=== PATIENT | female | born 1960 | race Caucasian/White ===

== ENCOUNTER → 2016-03-31 | Outpatient (CLI) | payer MEDICARE, OTHER ==
[~2016-03-31] MED LIST: ASPI81TA60 PO; ATEN50TA2 PO; BIOT10005 PO; CALC1CHW7 PO; CO Q100C10 PO; COLA100C PO; CYCL5TA PO; FISH120012 PO; MAGN500T5 PO; NASA1SPR; VITA250011 SL; VITMTA PO; XYZA5TAB2 PO
[2016-03-31 17:35] LABS: MEAN CORPUSCULAR HEMOGLOBIN 32.3 pg (27.0-33.0); MEAN CORPUSCULAR HGB CONC 33.6 g/dl (32.0-36.5); MEAN CORPUSCULAR VOLUME 96.3 fl (80.0-96.0); RED CELL DISTRIBUTION WIDTH 13.3 % (11.5-14.5); WHITE BLOOD COUNT 6.9 K/mm3 (4.0-10.0)
[2016-03-31 18:55] LABS: VITAMIN B12 LEVEL > 2000 PG/ML (247-911)
[2016-03-31 18:58] LABS: ALBUMIN 4.1 GM/DL (3.2-5.2); ALBUMIN/GLOBULIN RATIO 1.32 (1.00-1.93); ALKALINE PHOSPHATASE 75 U/L (45-117); ALT/SGPT 30 U/L (12-78); ANION GAP 6 MEQ/L (8-16); AST/SGOT 18 U/L (15-37); BILIRUBIN,TOTAL 0.7 MG/DL (0.2-1.0); BLOOD UREA NITROGEN 15 MG/DL (7-18); CALCIUM LEVEL 9.2 MG/DL (8.5-10.1); CARBON DIOXIDE LEVEL 33 MEQ/L (21-32); CHLORIDE LEVEL 104 MEQ/L (98-107); CHOLESTEROL LEVEL 178 MG/DL (<200); CREATININE FOR GFR 0.69 MG/DL (0.55-1.02); GLOMERULAR FILTRATION RATE > 60.0 (>51); GLUCOSE, FASTING 83 MG/DL (70-105); POTASSIUM SERUM 4.4 MEQ/L (3.5-5.1); SODIUM LEVEL 143 MEQ/L (136-145); TOTAL IRON BINDING CAPACITY 319 UG/DL (250-450); TOTAL PROTEIN 7.2 GM/DL (6.4-8.2); TRIGLYCERIDES LEVEL 88 MG/DL (<150)
[2016-03-31 18:59] LABS: FERRITIN 202 NG/ML (8-252); FREE T4 1.06 NG/DL (0.76-1.46)
== END ==
LOC: M LRY 12:20
PROVIDERS: ATTEND Surgery
DX: K91.2 Postsurgical malabsorption, not elsewhere classified (principal); Z79.899 Other long term (current) drug therapy

== ENCOUNTER → 2016-08-26 | Outpatient (REF) | payer MEDICARE, OTHER ==
[~2016-08-26] MED LIST changes: -COLA100C PO; +COLA100C3 PO
== END ==
LOC: M SFHCLERA 14:02
PROVIDERS: ATTEND Physician Assistant
DX: E83.42 Hypomagnesemia (principal)

== ENCOUNTER → 2016-08-26 | Outpatient (CLI) | payer MEDICARE, OTHER ==
[2016-08-26 18:22] LABS: MEAN CORPUSCULAR HEMOGLOBIN 34.2 pg (27.0-33.0); MEAN CORPUSCULAR HGB CONC 34.6 g/dl (32.0-36.5); RED CELL DISTRIBUTION WIDTH 13.2 % (11.5-14.5); WHITE BLOOD COUNT 5.3 K/mm3 (4.0-10.0)
[2016-08-26 19:21] LABS: VITAMIN B12 LEVEL 1783 PG/ML (247-911)
[2016-08-26 19:24] LABS: ALBUMIN/GLOBULIN RATIO 1.25 (1.00-1.93); ALKALINE PHOSPHATASE 79 U/L (45-117); ALT/SGPT 33 U/L (12-78); ANION GAP 6 MEQ/L (8-16); AST/SGOT 28 U/L (15-37); BILIRUBIN,TOTAL 0.5 MG/DL (0.2-1.0); BLOOD UREA NITROGEN 17 MG/DL (7-18); CALCIUM LEVEL 8.9 MG/DL (8.5-10.1); CARBON DIOXIDE LEVEL 32 MEQ/L (21-32); CHLORIDE LEVEL 102 MEQ/L (98-107); CHOLESTEROL LEVEL 225 MG/DL (<200); CREATININE FOR GFR 0.64 MG/DL (0.55-1.02); FERRITIN 163 NG/ML (8-252); FREE T4 0.92 NG/DL (0.76-1.46); GLOMERULAR FILTRATION RATE > 60.0 (>51); GLUCOSE, FASTING 133 MG/DL (70-105); PERCENT SATURATION 27.2 % (13.2-37.4); POTASSIUM SERUM 3.9 MEQ/L (3.5-5.1); SODIUM LEVEL 140 MEQ/L (136-145); TOTAL IRON BINDING CAPACITY 305 UG/DL (250-450); TOTAL PROTEIN 7.2 GM/DL (6.4-8.2); TRIGLYCERIDES LEVEL 164 MG/DL (<150)
== END ==
LOC: M LRY 14:03
PROVIDERS: ATTEND Surgery
DX: E83.42 Hypomagnesemia (principal); K91.2 Postsurgical malabsorption, not elsewhere classified; Z79.899 Other long term (current) drug therapy

== ENCOUNTER → 2017-01-06 | Outpatient (CLI) | payer MEDICARE, OTHER ==
[~2017-01-06] MED LIST changes: -BIOT10005 PO; +BIOT10008 PO; -COLA100C3 PO; +COLA100C5 PO
--- NOTE | 2017-01-06 13:50 | REP ---
Bilateral screening digital mammogram: There are no palpable abnormalities or other breast complaints. The patient states she had a clinical breast exam in January 2017. Comparison is 11/24/2012. The breast parenchyma is moderately dense a heterogeneous pattern that could obscure a lesion. There are benign calcifications. There has been no interval development of masses, areas of structural distortion or clusters of microcalcifications typical of malignancy. Impression: There is no evidence of malignancy. BI-RADS/ACR category 2 mammogram. Benign findings. The patient should have a repeat mammogram in 1 year. This mammogram was interpreted with the aid of an FDA-approved computer-aided detection system. A. Negative x-ray reports should not delay biopsy if a dominant or clinically suspicious mass is present. B. Not all breast cancers are identified by x-ray. C. Adenosis and dense breasts may obscure an underlying neoplasm. The patient letter being requested is M1.
== END ==
LOC: M WHC 11:02
PROVIDERS: ATTEND Nurse Practitioner Women's Health
DX: Z01.419 Encounter for gynecological examination (general) (routine) without abnormal findings (principal); Z12.31 Encounter for screening mammogram for malignant neoplasm of breast; Z12.12 Encounter for screening for malignant neoplasm of rectum
CPT/HCPCS: 82270; G0101; G0123; G0202

== ENCOUNTER → 2017-08-18 | Outpatient (CLI) | payer MEDICARE, OTHER ==
[2017-08-18 11:51] LABS: HEMATOCRIT 38.6 % (36.0-47.0); HEMOGLOBIN 12.9 g/dl (12.0-15.5); MEAN CORPUSCULAR HEMOGLOBIN 32.8 pg (27.0-33.0); MEAN CORPUSCULAR HGB CONC 33.4 g/dl (32.0-36.5); MEAN CORPUSCULAR VOLUME 98.2 fl (80.0-96.0); PLATELET COUNT, AUTOMATED 164 10^3/uL (150-450); RED BLOOD COUNT 3.93 10^6/uL (4.00-5.40); RED CELL DISTRIBUTION WIDTH 12.4 % (11.5-14.5)
[2017-08-18 12:25] LABS: ALBUMIN 3.9 GM/DL (3.2-5.2); ALBUMIN/GLOBULIN RATIO 1.26 (1.00-1.93); ALKALINE PHOSPHATASE 74 U/L (45-117); ALT/SGPT 25 U/L (12-78); ANION GAP 7 MEQ/L (8-16); AST/SGOT 19 U/L (7-37); BILIRUBIN,TOTAL 0.4 MG/DL (0.2-1.0); BLOOD UREA NITROGEN 14 MG/DL (7-18); CALCIUM LEVEL 9.1 MG/DL (8.5-10.1); CARBON DIOXIDE LEVEL 31 MEQ/L (21-32); CHLORIDE LEVEL 105 MEQ/L (98-107); CREATININE FOR GFR 0.61 MG/DL (0.55-1.30); FREE THYROXINE INDEX 3.1 % (1.3-4.8); GLOMERULAR FILTRATION RATE > 60.0 (>51); GLUCOSE, FASTING 89 MG/DL (70-100); IRON (FE) 86 UG/DL (50-170); POTASSIUM SERUM 4.4 MEQ/L (3.5-5.1); SODIUM LEVEL 143 MEQ/L (136-145); T UPTAKE 34 % (30-39); THYROXINE (T4) 9.1 UG/DL (4.5-12.0)
[2017-08-18 12:33] LABS: ESTIMATED AVERAGE GLUCOSE 105 MG/DL (60-110); HEMOGLOBIN A1c 5.3 %
[2017-08-18 12:43] LABS: TOTAL 25(OH) VITAMIN D 26.7 NG/ML (30.0-100.0); VITAMIN B12 LEVEL 708 PG/ML (247-911)
[2017-08-22 00:09] LABS: VITAMIN B1 LEVEL WHOLE BLOOD 78.4 nmol/L (66.5-200.0)
== END ==
LOC: M LRY 08:49
DX: E66.01 Morbid (severe) obesity due to excess calories (principal); I10 Essential (primary) hypertension; E78.4 Other hyperlipidemia; M25.552 Pain in left hip; Z98.84 Bariatric surgery status; Z79.82 Long term (current) use of aspirin; Z88.8 Allergy status to other drugs, medicaments and biological substances; Z79.899 Other long term (current) drug therapy; K21.9 Gastro-esophageal reflux disease without esophagitis; Z91.040 Latex allergy status
CPT/HCPCS: 83540

== ENCOUNTER → 2018-01-09 | Outpatient (CLI) | payer MEDICARE, OTHER | LOC: M WHC 11:12 | DX: Z12.31 Encounter for screening mammogram for malignant neoplasm of breast (principal); Z80.3 Family history of malignant neoplasm of breast | CPT/HCPCS: 77067 ==

== ENCOUNTER → 2018-09-04 | Outpatient (REF) | payer MEDICARE, OTHER ==
[~2018-09-04] MED LIST changes: -CYCL5TA PO; +CYCL5TAB5 PO
[2018-09-04 11:50] LABS: BASO % 0.6 % (0.0-1.0); EOS # 0.1 10^3/uL (0.0-0.50); EOS % 1.4 % (0.0-3.0); HEMATOCRIT 38.5 % (36.0-47.0); HEMOGLOBIN 12.7 g/dl (12.0-15.5); LYMPH # 1.6 10^3/uL (1.5-4.5); LYMPH % 31.1 % (24.0-44.0); MEAN CORPUSCULAR HEMOGLOBIN 33.4 pg (27.0-33.0); MEAN CORPUSCULAR VOLUME 101.3 fl (80.0-96.0); MONO # 0.3 10^3/uL (0.0-0.8); MONO % 6.4 % (0.0-5.0); NEUTROPHILS # 3.1 10^3/uL (1.8-7.7); NEUTROPHILS % 60.1 % (36.0-66.0); PLATELET COUNT, AUTOMATED 189 10^3/uL (150-450); WHITE BLOOD COUNT 5.2 10^3/uL (4.0-10.0)
[2018-09-04 12:18] LABS: BLOOD UREA NITROGEN 16 MG/DL (7-18); CALCIUM LEVEL 8.9 MG/DL (8.8-10.2); CARBON DIOXIDE LEVEL 29 MEQ/L (21-32); CHLORIDE LEVEL 103 MEQ/L (98-107); CHOLESTEROL LEVEL 227 MG/DL (<200); CHOLESTEROL RISK RATIO 2.026 (<5); CREATININE FOR GFR 0.69 MG/DL (0.55-1.30); GLOMERULAR FILTRATION RATE > 60.0 (>45); GLUCOSE, FASTING 90 MG/DL (70-100); HDL CHOLESTEROL 112 MG/DL (>40); LDL CHOLESTEROL 101 MG/DL (<100); NON-HDL-C 115 MG/DL; POTASSIUM SERUM 4.5 MEQ/L (3.5-5.1); SODIUM LEVEL 138 MEQ/L (136-145); TRIGLYCERIDES LEVEL 72 MG/DL (<150)
[2018-09-04 12:27] LABS: VITAMIN B12 LEVEL 1347 PG/ML
[2018-09-04 12:29] LABS: FOLATE > 24.0 NG/ML
== END ==
LOC: M SFHCLERA 10:13
PROVIDERS: ATTEND Family Medicine
DX: Z00.00 Encounter for general adult medical examination without abnormal findings (principal); Z98.84 Bariatric surgery status; Z79.82 Long term (current) use of aspirin; Z79.899 Other long term (current) drug therapy

== ENCOUNTER → 2018-09-12 | Outpatient (CLI) | payer MEDICARE, OTHER ==
--- NOTE | 2018-09-12 18:45 | REP ---
Left hip: Two views. History: Left hip pain. Findings: AP and frog-leg views of the left hip demonstrate old post-traumatic deformity in the femoral diaphysis at the edge of the field of view. There is greater trochanteric spurring and heterotopic bone formation is seen in the soft tissues superior to the greater trochanter. There is acetabular spurring superiorly. Joint space narrowing is seen in the superior aspect of the left hip consistent with osteoarthritis. There is tendon insertion site spurring on the ischium. Impression: No acute bony abnormality. Heterotopic bone formation and tendon insertion site spurring at the greater trochanter and spurring at the ischium. 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 Minimal spurring at the SI joint. Electronically Signed by Estrada Sharma MD 09/12/2018 07:30 P
== END ==
LOC: M LRY 11:10
PROVIDERS: ATTEND Family Medicine
DX: M16.12 Unilateral primary osteoarthritis, left hip (principal); M53.3 Sacrococcygeal disorders, not elsewhere classified
CPT/HCPCS: 73502; G0463

== ENCOUNTER → 2019-01-10 | Outpatient (CLI) | payer MEDICARE, OTHER ==
--- NOTE | 2019-01-10 14:56 | REPMRS ---
Patient History The patient states she has not had a clinical breast exam in over a year. Family history of breast cancer at age 54 in sister, breast cancer at age 50 in maternal aunt, breast cancer at age 50 or over in maternal cousin. No Hormone Replacement Therapy Digital Woman Screen Mammo: January 10, 2019 - Exam #: [id number] Bilateral CC and MLO view(s) were taken. Technologist: Chyna Miranda, Technologist Prior study comparison: January 09, 2018, bilateral digital woman screen mammo performed at [facility]. January 06, 2017, digital woman screen mammo performed at [facility]. December 04, 2015, left breast digital mammo diagnostic unilateral, performed at [facility]. FINDINGS: There are scattered fibroglandular densities. There has been no change in the appearance of the mammogram from the prior studies. There is a mild amount of scattered fibroglandular density which is fairly symmetric. There is no interval development of dominant mass, architectural distortion, or grouped microcalcification suggestive of malignancy. 3-D tomosynthesis shows no additional findings. Assessment: BI-RADS/ACR category 1 mammogram. Negative Mammogram. Recommendation Routine screening mammogram of both breasts in 1 year (for women over age 40). This patient's Lifetime Breast Cancer Risk is estimated at 16.5 %. This mammogram was interpreted with the aid of an FDA-approved computer-aided dectection system. Electronically Signed By: Ross Sharma MD 01/10/19 1064
== END ==
LOC: M WHC 10:57
PROVIDERS: ATTEND Nurse Practitioner Women's Health
DX: Z12.31 Encounter for screening mammogram for malignant neoplasm of breast (principal); Z80.3 Family history of malignant neoplasm of breast

== ENCOUNTER → 2020-01-14 | Outpatient (REF) | payer MEDICARE, OTHER | LOC: M SFHCWAGY 13:08 | PROVIDERS: ATTEND Nurse Practitioner Women's Health | DX: Z12.4 Encounter for screening for malignant neoplasm of cervix (principal); N95.2 Postmenopausal atrophic vaginitis | CPT/HCPCS: 87624; G0123 ==

== ENCOUNTER → 2020-01-14 | Outpatient (CLI) | payer MEDICARE, OTHER ==
--- NOTE | 2020-01-14 13:23 | REPMRS ---
Patient History The patient states she had a clinical breast exam in 01/2020. Family history of breast cancer at age 54 in sister, breast cancer at age 50 in maternal aunt, breast cancer at age 50 or over in maternal cousin. No Hormone Replacement Therapy Digital Woman Screen Mammo: January 14, 2020 - Exam #: [id number] Bilateral CC and MLO view(s) were taken. Technologist: Chyna Miranda, Technologist Prior study comparison: January 10, 2019, bilateral digital woman screen mammo performed at [facility]. January 09, 2018, bilateral digital woman screen mammo performed at [facility]. January 06, 2017, digital woman screen mammo performed at [facility]. FINDINGS: There are scattered fibroglandular densities. The Volpara volumetric breast density category is:B. There has been no change in the appearance of the mammogram from the prior studies. There is a mild amount of scattered fibroglandular density which is fairly symmetric. There is no interval development of dominant mass, architectural distortion, or grouped microcalcification suggestive of malignancy. 3-D tomosynthesis shows no additional findings. Assessment: BI-RADS/ACR category 1 mammogram. Negative Mammogram. Recommendation Routine screening mammogram of both breasts in 1 year (for women over age 40). This patient's Lifetime Breast Cancer Risk is estimated at 16.0 %. This mammogram was interpreted with the aid of an FDA-approved computer-aided dectection system. Electronically Signed By: Ross Sharma MD 01/14/20 0657
== END ==
LOC: M WHC 11:04
PROVIDERS: ATTEND Nurse Practitioner Women's Health
DX: Z01.419 Encounter for gynecological examination (general) (routine) without abnormal findings (principal); Z12.31 Encounter for screening mammogram for malignant neoplasm of breast; Z80.3 Family history of malignant neoplasm of breast
CPT/HCPCS: 77063; 77067; 87624; G0101; G0123

== ENCOUNTER → 2020-07-15 | Outpatient (CLI) | payer MEDICARE, OTHER ==
[2020-07-15 12:33] LABS: BASO % 0.7 % (0.0-1.0); EOS # 0.1 10^3/uL (0.0-0.5); EOS % 1.4 % (0.0-3.0); HEMATOCRIT 43.5 % (36.0-47.0); HEMOGLOBIN 14.4 g/dl (12.0-15.5); LYMPH # 1.5 10^3/uL (1.5-5.0); LYMPH % 35.9 % (24.0-44.0); MEAN CORPUSCULAR HGB CONC 33.1 g/dl (32.0-36.5); MEAN CORPUSCULAR VOLUME 102.6 fl (80.0-96.0); MONO # 0.3 10^3/uL (0.0-0.8); MONO % 7.8 % (2.0-8.0); NEUTROPHILS # 2.3 10^3/uL (1.5-8.5); PLATELET COUNT, AUTOMATED 132 10^3/uL (150-450); RED BLOOD COUNT 4.24 10^6/uL (4.00-5.40); WHITE BLOOD COUNT 4.2 10^3/uL (4.0-10.0)
[2020-07-15 13:05] LABS: ALT/SGPT 29 U/L (12-78); BILIRUBIN,TOTAL 0.6 MG/DL (0.2-1.0); BLOOD UREA NITROGEN 17 MG/DL (7-18); CALCIUM LEVEL 9.8 MG/DL (8.8-10.2); CARBON DIOXIDE LEVEL 29 MEQ/L (21-32); CHLORIDE LEVEL 104 MEQ/L (98-107); CHOLESTEROL LEVEL 326 MG/DL (<200); CHOLESTEROL RISK RATIO 3.075 (<5); CREATININE FOR GFR 0.71 MG/DL (0.55-1.30); GLOMERULAR FILTRATION RATE > 60.0 (>45); GLUCOSE, FASTING 83 MG/DL (70-100); HDL CHOLESTEROL 106 MG/DL (>40); LDL CHOLESTEROL 195 MG/DL (<100); NON-HDL-C 220 MG/DL; POTASSIUM SERUM 4.3 MEQ/L (3.5-5.1); SODIUM LEVEL 139 MEQ/L (136-145); TOTAL PROTEIN 7.4 GM/DL (6.4-8.2); TRIGLYCERIDES LEVEL 127 MG/DL (<150)
== END ==
LOC: M LAB 11:23
PROVIDERS: ATTEND Nurse Practitioner Family
DX: E78.2 Mixed hyperlipidemia (principal); I10 Essential (primary) hypertension

== ENCOUNTER → 2020-08-01 | Outpatient (CLI) | payer MEDICARE, OTHER ==
[2020-08-01 11:40] LABS: FOLATE > 24.0 NG/ML (>5.4); VITAMIN B12 LEVEL 562 PG/ML (247-911)
== END ==
LOC: M LAB 09:20
PROVIDERS: ATTEND Nurse Practitioner Family
DX: D75.89 Other specified diseases of blood and blood-forming organs (principal)

== ENCOUNTER → 2021-01-14 | Outpatient (CLI) | payer MEDICARE, OTHER ==
--- NOTE | 2021-01-14 12:13 | REPMRS ---
Patient History The patient states she had a clinical breast exam in 2020. Family history of breast cancer at age 54 in sister, breast cancer at age 50 in maternal aunt, breast cancer at age 50 or over in maternal cousin, colorectal cancer at age 42 in son. No Hormone Replacement Therapy Tomosynthesis is performed. Volpara breast density is b. [facility] lifetime risk of breast cancer 15.4%. Patient states no breast complaints today. Patient has signed MRS History Sheet. Digital Woman Screen Mammo: January 14, 2021 - Exam #: [id number] Bilateral CC and MLO view(s) were taken. Technologist: Lizzeth Velez, Technologist Prior study comparison: January 14, 2020, bilateral digital woman screen mammo performed at [facility]. January 10, 2019, bilateral digital woman screen mammo performed at [facility]. FINDINGS: There are scattered fibroglandular densities. There has been no change in the appearance of the mammogram from the prior studies. There is a mild amount of residual fibroglandular tissue which is fairly symmetric. There is no interval development of dominant mass, architectural distortion, or clustered microcalcification suggestive of malignancy. Assessment: BI-RADS/ACR category 1 mammogram. Negative Mammogram. Recommendation Routine screening mammogram in 1 year (for women over age 40). This mammogram was interpreted with the aid of an FDA-approved computer-aided dectection system. Electronically Signed By: Matthew Andrade MD 01/14/21 [id number]
== END ==
LOC: M WHC 11:25
PROVIDERS: ATTEND Nurse Practitioner Women's Health
DX: Z12.31 Encounter for screening mammogram for malignant neoplasm of breast (principal); Z80.3 Family history of malignant neoplasm of breast

== ENCOUNTER → 2021-02-02 | Outpatient (CLI) | payer MEDICARE, OTHER ==
[~2021-02-02] MED LIST changes: +ASPI81TA26 PO; +B-122500 PO; +BIOT1000 PO; +CALC1WAF2 PO; +CVS1CAP2 PO; +CYCL-707 PO; +DYMI137S; +KP F1200 PO; +LEVOTAB10 PO; +MAGN400C2 PO; +VITA-243 PO
== END ==
LOC: M LABSMTC 11:58
PROVIDERS: ATTEND Anesthesiology
DX: Z01.812 Encounter for preprocedural laboratory examination (principal); Z20.822 Contact with and (suspected) exposure to COVID-19

== ENCOUNTER 2021-02-06 08:04 | Day surgery (SDC) | payer MEDICARE, OTHER ==
[~2021-02-06] VITALS: Ht 162.6 cm; Wt 91.2 kg
[~2021-02-06 08:04] MED LIST changes: +NS 1,000 ML IV ONE
--- OUTSIDE RECORDS SUMMARY | 2021-02-06 08:09 | CCD ---
Author Author [facility] Organization [facility] Address Unknown Phone Unavailable Care Team Providers Care Manager Merchandise Name Role Phone Mary Dumont Unavailable PROBLEMS Type Condition ICD9-CM Code [id number] Code Onset Dates Condition S tatus W/U Status Risk SNOMED Code Notes Problem Allergic rhinitis, unspecified seasonality, unspecifie d trigger J30.9 Active confirmed 36531877 Problem Macrocytosis D75.89 Active confirmed 9906642 00 Problem Essential hypertension I10 Active confirmed 05976349 Problem Mixed hyperlipidemia E78.2 Active confirmed 576555755 Problem Gastroesophageal reflux disease, esophagitis pre sence not specified K21.9 Active confirmed 753538936 ALLERGIES Allergen (clinical drug ingredient) Drug/Non Drug Allergy do cumented on EMR Reaction Allergy Type Onset Date Status hay fever/dust mites sneezing/nasal congestion Non Drug Al lergy Active Latex Latex rash Drug Allergy Active lisinopril Lisinopril([facility] Code:[address]-76) Cough Drug Allergy Active ENCOUNTERS from 1960 to 2021-01-15 Encounter Location [place] [address] 10 Jan, 2021 Mary Dumont IMMUNIZATIONS Vaccine Route Administration Date Status Influenza 18 yrs & older Flublok IM Intramuscular Jan 03, 2018 Administered TDAP 0.5mL (Boostrix) IM Intramuscular August 22, 2017 Administe red Influenza 6mo & up Fluzone IM Intramuscular Feb 25, 2017 Admi nistered Influenza 6mo & up Fluzone IM Intramuscular Jan 28, 2015 Admi nistered Influenza 6mo & up Fluzone IM Intramuscular Dec 21, 2013 Admi nistered SOCIAL HISTORY Tobacco Use: Social History Observation Description Date Details (start date - stop date) Never Smoker Sex Assigned At : Social History Observation Description Sex Assigned At Unknown Education: Question Answer Notes Level of Education: High School Audit Question Answer Notes Total Score: 4 Interpretation: Alcohol Education Sexual Hx: Question Answer Notes Had sex in the last 12 months (vaginal, oral, or anal)? Yes LMP: post menopause Have you ever had an STD? No with Men only Drug and Alcohol Question Answer Notes Total Score: 0 Interpretation: No problems reported BMI Care Goal Follow-Up Question Answer Notes Above Normal BMI Follow-Up Weight monitoring Tobacco Use: Question Answer Notes Are you a: never smoker REASON FOR REFERRAL No Information VITAL SIGNS No information MEDICATIONS Medication SIG (Take, Route, Frequency, Duration) Notes Start Da te End Date Status Vitamin B-12 2500 MCG 1 tablet Sublingual daily Active Xyzal 5 MG 1 tablet in the evening Orally Once a day for 90 day(s) Jan, Active Colace 100 MG 1 capsule as needed Orally Once a day Active Melatonin 10 MG Orally Active Atenolol 50 MG 1 tablet Orally Once a day for blood pressure for 90 day(s) Active Biotin 1000 MCG 1 tablet Orally Once a day Active Cyclobenzaprine HCl 10 MG 1 tablet as needed Orally at night for 30 day(s) Aug, Active Diclofenac Sodium 1 % 4gms to affected area prn Ex ternally four times daily for 30 day(s) Sep, Active Fish Oil 1200 MG 1 capsule Orally Once a day Active Coenzyme Q10 100 MG 1 capsule with a meal Orally Once a day for sta tin use Active Fluticasone Propionate 50 MCG/ACT 1 spray in each nost ril Nasally Once a day for 30 day(s) July, Active Advil 200 MG 1 tablet with food or milk as needed Orally as needed [place] N Active Diclofenac Sodium 1 % 4 gms Transdermal four times daily for 14 day(s) Sep, Not-Taking Magnesium 250 MG 1 tab Orally Once a day Active Azelastine HCl 137 MCG/SPRAY 1 puff in each nostril Na augustin Twice a day for 30 day(s) Sep, Active Tylenol 325 MG 1 tablet as needed Orally every 6 hrs Not-Taking Golytely 236 GM mL/soln Orally Daily for 1 days 13 Sep, 20 21 Active Triamcinolone Acetonide 0.1 % 1 application to affecte d area Externally 2-3 times daily for 30 day(s) Dec, Active Calcium Citrate 500 mg 1 tablet Orally Once a day Active Aspirin 81 MG 1 tablet Orally Once a day Active Multivitamins 1 tab(s) Orally daily Active PROCEDURES No Information RESULTS No Results REASON FOR VISIT MAMMO ORDER MEDICAL (GENERAL) HISTORY Type Description Date Medical History HTN Medical History Hyperlipidema Medical History Seasonal Allergies Medical History H/o Sinusitis Medical History Chronic night leg cramps Medical History Eczema Medical History Hypertension, benign Medical History Other and unspecified hyperlipidemia Medical History Esophageal reflux Surgical History C-sections 1976, 1978 Surgical History Repair of broken left hip, left femur an d left ankle 1978 Surgical History Repair of broken left femur and ankle 19 81 Surgical History Tubal ligation 1979 Surgical History uterine ablasion 2009 Surgical History Colonoscopy (diverticulum) 2011 Surgical History Gastric sleeve for weight loss 08/2014 Hospitalization History Childbirth 1978 Goals Section No Information Health Concerns No Information MEDICAL EQUIPMENT No Information MENTAL STATUS No Information FUNCTIONAL STATUS No Information ASSESSMENTS No Information PLAN OF TREATMENT Medication Medication Name Sig Start Date Stop Date Fluticasone Propionate 50 MCG/ACT 1 spray in each nost ril Nasally Once a day for 30 day(s) July, Diclofenac Sodium 1 % 4gms to affected area prn Ex ternally four times daily for 30 day(s) Sep, Xyzal 5 MG 1 tablet in the evening Orally Once a day for 90 day(s) Jan, Golytely 236 GM mL/soln Orally Daily for 1 days Nov, Cyclobenzaprine HCl 10 MG 1 tablet as needed Orally at night for 30 day(s) Aug, Atenolol 50 MG 1 tablet Orally Once a day for blood pressure fo r 90 day(s) Azelastine HCl 137 MCG/SPRAY 1 puff in each nostril Na augustin Twice a day for 30 day(s) Sep, Triamcinolone Acetonide 0.1 % 1 application to affecte d area Externally 2-3 times daily for 30 day(s) Dec, Next Appt Details Provider Name:Sade De La Cruz, [birth year] 10:30:00 AM, [address] [facility], , [place], [id number], Insurance Providers Payer Name Payer Address Payer Phone Insured Name Patient Relati onship to Insured Coverage Start Date Coverage End Date [facility] [address] [address] [facility] [id number] Mica WILLARD MEDICARE Part A and B [address] [facility] [address] MANISHA WILLARD
--- OUTSIDE RECORDS SUMMARY | 2021-02-06 08:09 | CCD ---
Author Author [facility] Organization [facility] Address Unknown Phone Unavailable Care Team Providers Care Hvac Specialist Name Role Phone Sade De La Cruz Unavailable PROBLEMS Type Condition ICD9-CM Code [id number] Code Onset Dates Condition S tatus W/U Status Risk SNOMED Code Notes Problem Allergic rhinitis, unspecified seasonality, unspecifie d trigger J30.9 Active confirmed 23291141 Problem Macrocytosis D75.89 Active confirmed 8064391 00 Problem Essential hypertension I10 Active confirmed 22214530 Problem Mixed hyperlipidemia E78.2 Active confirmed 705038620 Problem Gastroesophageal reflux disease, esophagitis pre sence not specified K21.9 Active confirmed 094910208 ALLERGIES Allergen (clinical drug ingredient) Drug/Non Drug Allergy do cumented on EMR Reaction Allergy Type Onset Date Status hay fever/dust mites sneezing/nasal congestion Non Drug Al lergy Active lisinopril Cough Drug Allergy Active Latex (for allergy use only) rash Drug Allergy Active ENCOUNTERS from 1960 to 2020-12-04 Encounter Location Date Provider Diagnosis [facility] [address] [facility] [phone] [place] [phone] Nov, Sade De La Cruz SI (sacroiliac) joint dysfun ction M53.3 IMMUNIZATIONS Vaccine Route Administration Date Status Influenza [...] or milk as needed Orally as needed [place] N Active Diclofenac Sodium 1 % 4 [...] mL/soln Orally Daily for 1 days Nov, Active Triamcinolone Acetonide 0.1 % 1 application to affecte d area Externally 2-3 times daily for 30 day(s) Dec, Active Calcium Citrate 500 mg 1 tablet Orally Once a day Active Aspirin 81 MG 1 tablet Orally Once a day Active Multivitamins 1 tab(s) Orally daily Active PROCEDURES No Information RESULTS No Results REASON FOR VISIT New Refill Request MEDICAL (GENERAL) HISTORY Type Description Date Medical [...] No Information FUNCTIONAL STATUS No Information ASSESSMENTS Encounter Date Diagnosis Assessment Notes Treatment Notes Treatm ent Clinical Notes Nov, SI (sacroiliac) joint dysfunction (ICD-10 - M53. 3) PLAN OF TREATMENT Medication Medication Name Sig [...] De La Cruz, [birth year] 10:30:00 AM, [address] [facility], , [place], [id number], Insurance Providers Payer Name Payer Address Payer Phone Insured Name Patient Relati onship to Insured Coverage Start Date Coverage End Date MEDICARE Part A and B [address] [facility] [id number] MANISHA WILLARD [facility] [address] [address] [facility] [id number] Mica WILLARD
--- OUTSIDE RECORDS SUMMARY | 2021-02-06 08:09 | CCD ---
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 Name Role Phone Gia Joy MD Unavailable Unavailable Gia Joy MD Unavailable Unavailable Gia Joy MD Unavailable Unavailable Gia Joy MD Unavailable Unavailable Gia Joy MD Unavailable Unavailable Gia Joy MD Unavailable Unavailable Gia Joy MD Unavailable Unavailable Gia Joy MD Unavailable Unavailable Gia Joy MD Unavailable Unavailable Gia Joy MD Unavailable Unavailable Gia Joy MD Unavailable Unavailable Gia Joy MD Unavailable Unavailable Gia Joy MD Unavailable Unavailable Gia Joy MD Unavailable Unavailable Gia Joy MD Unavailable Unavailable Gia Joy MD Unavailable Unavailable Gia Joy MD Unavailable Unavailable Gia Joy MD Unavailable Unavailable Gia Joy MD Unavailable Unavailable Gia Joy MD Unavailable Unavailable Gia Joy MD Unavailable Unavailable Gia Joy MD Unavailable Unavailable Gia Joy MD Unavailable Unavailable Gia Joy MD Unavailable Unavailable Gia Joy MD Unavailable Unavailable Gia Joy MD Unavailable Unavailable Gia Joy MD Unavailable Unavailable Gia Joy MD Unavailable Unavailable Gia Joy MD Unavailable Unavailable Gia Joy MD Unavailable Unavailable Gia Joy MD Unavailable Unavailable Gia Joy MD Unavailable Unavailable Gia Joy MD Unavailable Unavailable Gia Joy MD Unavailable Unavailable Joy, Gia Gomez MD Unavailable Unavailable Joy, Gia Gomez MD Unavailable Unavailable Joy, Gia Gomez MD Unavailable Unavailable Joy, Gia Gomez MD Unavailable Unavailable Joy, Gia Gomez MD Unavailable Unavailable Joy, Gia Gomez MD Unavailable Unavailable Joy, Gia Gomez MD Unavailable Unavailable Joy, Gia Gomez MD Unavailable Unavailable Joy, Gia Gomez MD Unavailable Unavailable Joy, Gia Gomez MD Unavailable Unavailable Joy, Gia Gomez MD Unavailable Unavailable Joy, Gia Gomez MD Unavailable Unavailable Joy, Gia Gomez MD Unavailable Unavailable Joy, Gia Gomez MD Unavailable Unavailable Joy, Gia Gomez MD Unavailable Unavailable Joy, Gia Gomez MD Unavailable Unavailable Joy, Gia Gomez MD Unavailable Unavailable Joy, Gia Gomez MD Unavailable Unavailable Joy, Gia Gomez MD Unavailable Unavailable Joy, Gia Gomez MD Unavailable Unavailable Joy, Gia Gomez MD Unavailable Unavailable Joy, Gia Gomez MD Unavailable Unavailable Joy, Gia Gomez MD Unavailable Unavailable Jyo, Gia Gomez MD Unavailable Unavailable Joy, Gia Gomez MD Unavailable Unavailable Joy, Gia Gomez MD Unavailable Unavailable Joy, Gia Gomez MD Unavailable Unavailable Joy, Gia Gomez MD Unavailable Unavailable Joy, Gia Gomez MD Unavailable Unavailable Joy, Gia Gomez MD Unavailable Unavailable Joy, Gia Gomez MD Unavailable Unavailable Joy, Gia Gomez MD Unavailable Unavailable Joy, Gia Gomez MD Unavailable Unavailable Joy, Gia Gomez MD Unavailable Unavailable Joy, Gia Gomez MD Unavailable Unavailable Joy, Gia Gomez MD Unavailable Unavailable Joy, Gia Gomez MD Unavailable Unavailable Joy, Gia Gomez MD Unavailable Unavailable Joy, Gia Gomez MD Unavailable Unavailable Joy, Gia Gomez MD Unavailable Unavailable Joy, Gia Gomez MD Unavailable Unavailable Joy, Gia Gomez MD Unavailable Unavailable Joy, Gia Gomez MD Unavailable Unavailable Joy, Gia Gomez MD Unavailable Unavailable Joy, Gia Gomez MD Unavailable Unavailable Joy, Gia Gomez MD Unavailable Unavailable Joy, Gia Gomez MD Unavailable Unavailable Joy, Gia Gomez MD Unavailable Unavailable Joy, Gia Gomez MD Unavailable Unavailable Joy, Gia Gomez MD Unavailable Unavailable Joy, Gia Gomez MD Unavailable Unavailable Joy, Gia Gomez MD Unavailable Unavailable Joy, Gia Gomez MD Unavailable Unavailable Joy, Gia Gomez MD Unavailable Unavailable JoyGia MD Unavailable Unavailable JoyGia MD Unavailable Unavailable Joy, Gia Gomez MD Unavailable Unavailable Joy, Gia Gomez MD Unavailable Unavailable Joy, Gia Gomez MD Unavailable Unavailable Joy, Gia Gomez MD Unavailable Unavailable Re-disclosure Warning The records that you are about to access may contain information from federally-assisted alcohol or drug abuse programs. If such information is present, then the following federally mandated warning applies: This information has been disclosed to you from records protected by federal confidentiality rules (42 CFR part 2). The federal rules prohibit you from making any further disclosure of this information unless further disclosure is expressly permitted by the written consent of the person to whom it pertains or as otherwise permitted by 42 CFR part 2. A general authorization for the release of medical or other information is NOT sufficient for this purpose. The Federal rules restrict any use of the information to criminally investigate or prosecute any alcohol or drug abuse patient.The records that you are about to access may contain highly sensitive health information, the redisclosure of which is protected by Article 27-F of the [facility] Public Health law. If you continue you may have access to information: Regarding HIV / AIDS; Provided by facilities licensed or operated by the [facility] Office of Mental Health; or Provided by the [facility] Office for People With Developmental Disabilities. If such information is present, then the following [facility] mandated warning applies: This information has been disclosed to you from confidential records which are protected by state law. State law prohibits you from making any further disclosure of this information without the specific written consent of the person to whom it pertains, or as otherwise permitted by law. Any unauthorized further disclosure in violation of state law may result in a fine or [place] health care facility sentence or both. A general authorization for the release of medical or other information is NOT sufficient authorization for further disc losure. Allergies and Adverse Reactions Type Description Substance Reaction Status Data Source(s ) Allergy to substance Allergy to substance Allergy to substance FREEHOLD ([facility]) Encounters Encounter Providers Location Date Indications Data Source(s ) Unknown [address] [facility] [place] [address] 01/14/2021 12:00:00 AM EST eCW1 ([facility]) Unknown [address] [facility] [place] [address] 01/14/2021 12:00:00 AM EST eCW1 ([facility]) Unknown [address] [facility] [place] [address] 12/01/2020 12:00:00 AM EDT eCW1 ([facility]) Unknown [address] [facility] [place] [address] 11/17/2020 12:00:00 AM EDT eCW1 ([facility]) Unknown [address] [facility] [place] [address] 10/29/2020 12:00:00 AM EDT eCW1 ([facility]) [place] [address] [facility] [address] [place] [address] 08/07/2020 12:00:00 AM EDT eCW1 ([facility]) [place] [address] [facility] [place] [address] 08/07/2020 12:00:00 AM EDT eCW1 ([facility]) Outpatient [address] [facility] [place] [address] 07/17/2020 12:00:00 AM EDT eCW1 ([facility]) [place] [address] [facility] [place] [address] 07/03/2020 12:00:00 AM EDT eCW1 ([facility]) [place] [address] [facility] [place] [address] 07/02/2020 12:00:00 AM EDT eCW1 ([facility]) Unknown [address] [facility] [place] [address] 07/02/2020 12:00:00 AM EDT eCW1 ([facility]) Jason Jyo MD: [address] [place] [phone], Ph. 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 Medications Medication Brand Name Start Date Product Form Dose Route Admi nistrative Instructions Pharmacy Instructions Status Indications Reaction Description Data Source(s) POLYETHYLENE GLYCOL 3350 59 MG/ML / Pota ssium Chloride 0.01 MEQ/ML / Sodium Bicarbonate 0.02 MEQ/ML / Sodium Chloride 0.025 MEQ/ML / sodium sulfate 0.04 MEQ/ML Oral Solution [Golytely] Golytely 236 GM Golytely 236 GM 2020 12:00:00 AM EDT active Golytely 236 GM eCW1 ([facility]) POLYETHYLENE GLYCOL 3350 59 MG/ML / Pota ssium Chloride 0.01 MEQ/ML / Sodium Bicarbonate 0.02 MEQ/ML / Sodium Chloride 0.025 MEQ/ML / sodium sulfate 0.04 MEQ/ML Oral Solution [Golytely] Golytely 236 GM Golytely 236 GM 2020 12:00:00 AM EDT active Golytely 236 GM eCW1 ([facility]) POLYETHYLENE GLYCOL 3350 59 MG/ML / Pota ssium Chloride 0.01 MEQ/ML / Sodium Bicarbonate 0.02 MEQ/ML / Sodium Chloride 0.025 MEQ/ML / sodium sulfate 0.04 MEQ/ML Oral Solution [Golytely] Golytely 236 GM Golytely 236 GM 2020 12:00:00 AM EDT active Golytely 236 GM eCW1 ([facility]) POLYETHYLENE GLYCOL 3350 59 MG/ML / Pota ssium Chloride 0.01 MEQ/ML / Sodium Bicarbonate 0.02 MEQ/ML / Sodium Chloride 0.025 MEQ/ML / sodium sulfate 0.04 MEQ/ML Oral Solution [Golytely] Golytely 236 GM Golytely 236 GM 2020 12:00:00 AM EDT active Golytely 236 GM eCW1 ([facility]) Misc. Devices - UNK 10/30/2020 12:00:00 AM EDT active Misc. Devices - eCW1 ([facility]) Clenpiq Clenpiq 10/28/2020 12:00:00 AM EDT active MEDENT ([facility]) Magnesium Hydroxide 80 MG/ML Oral Suspension Milk Of [place] a 10/28/2020 12:00:00 AM EDT ORAL active M EDENT ([facility], ) Fluticasone Propionate 50 MCG/ACT Fluticasone Propionate 50 MCG/ACT 07/17/2020 12:00:00 AM EDT 1.0 {spray_in_each_nostril} acti ve Fluticasone Propionate 50 MCG/ACT eCW1 ([facility]) Fluticasone Propionate 50 MCG/ACT Fluticasone Propionate 50 MCG/ACT 07/17/2020 12:00:00 AM EDT 1.0 {spray_in_each_nostril} acti ve Fluticasone Propionate 50 MCG/ACT eCW1 ([facility]) Fluticasone Propionate 50 MCG/ACT Fluticasone Propionate 50 MCG/ACT 07/17/2020 12:00:00 AM EDT 1.0 {spray_in_each_nostril} acti ve Fluticasone Propionate 50 MCG/ACT eCW1 ([facility]) Fluticasone Propionate 50 MCG/ACT Fluticasone Propionate 50 MCG/ACT 07/17/2020 12:00:00 AM EDT 1.0 {spray_in_each_nostril} acti ve Fluticasone Propionate 50 MCG/ACT eCW1 ([facility]) Fluticasone Propionate 50 MCG/ACT Fluticasone Propionate 50 MCG/ACT 07/17/2020 12:00:00 AM EDT 1.0 {spray_in_each_nostril} acti ve Fluticasone Propionate 50 MCG/ACT eCW1 ([facility]) Fluticasone Propionate 50 MCG/ACT Fluticasone Propionate 50 MCG/ACT 07/17/2020 12:00:00 AM EDT 1.0 {spray_in_each_nostril} acti ve Fluticasone Propionate 50 MCG/ACT eCW1 ([facility]) Fluticasone Propionate 50 MCG/ACT Fluticasone Propionate 50 MCG/ACT 07/17/2020 12:00:00 AM EDT 1.0 {spray_in_each_nostril} acti ve Fluticasone Propionate 50 MCG/ACT eCW1 ([facility]) Fluticasone Propionate 50 MCG/ACT Fluticasone Propionate 50 MCG/ACT 07/17/2020 12:00:00 AM EDT 1.0 {spray_in_each_nostril} acti ve Fluticasone Propionate 50 MCG/ACT eCW1 ([facility]) Insurance Providers Payer name Policy type / Coverage type Policy ID Covered democrat ID Covered democrat's relationship to zee Policy Zee Plan Information [facility] OFFICE OF [facility] [id number] SP [id number] MEDICARE [id number] [facility] [id number] [place] [id number] [facility] [id number] ANSI-Commercial [id number] ANSI-Medicare Part B [id number] ANSI-Medicare Part B [id number] ANSI-Commercial [id number] ANSI-Medicare Part B [id number] ANSI-Commercial [id number] ANSI-Commercial [id number] ANSI-Medicare Part B [id number] ANSI-Commercial [id number] ANSI-Medicare Part B [id number] ANSI-Commercial [id number] ANSI-Medicare Part B [id number] CENTER [id number] 2 [id number] MEDICARE [id number] SP [id number] A CENTER UNAVAILABLE LEXUS VAILABLE [facility] O [id number] S [id number] MEDICARE PART A M [id number] S [id number] MEDICARE M [id number] S [id number] A [facility] O [id number] S [id number] [facility] [place] [id number] [place] [id number] [facility] [id number] [place] [id number] Problems, Conditions, and Diagnoses Code Display Name Description Problem Type Effective Dates Data Source(s) 66547311 Essential hypertension Essential hypertension Problem 10/28/2020 12:00:00 AM EDT MEDENT ([facility], ) D75.89 357959644 Macrocytosis Problem 07/17/2020 12:00:00 AM EDT eCW1 ([facility]) Surgeries/Procedures No Information Results ID Date Data Source [id number] 02/02/2021 10:15:00 AM EST [facility] Name Value Range Interpretation Code Description Data Tatyana rce(s) Supporting Document(s) SARS-CoV-2 (COVID-19) RNA [Presence] in Respiratory specimen by SHARITA with probe detection Not Detected [facility] This lab was ordered by [facility] and reported by [facility]. Procedure Social History Code Duration Value Status Description Data Source(s ) Smoking 12/21/2020 12:00:00 AM EDT Never Smoker completed Never S moker eCW1 ([facility]) Smoking 12/21/2020 12:00:00 AM EDT Never Smoker completed Never S moker eCW1 ([facility]) Smoking 07/17/2020 12:00:00 AM EDT Never Smoker completed Never S moker eCW1 ([facility]) Smoking 07/17/2020 12:00:00 AM EDT Never Smoker completed Never S moker eCW1 ([facility]) Smoking 07/17/2020 12:00:00 AM EDT Never Smoker completed Never S moker eCW1 ([facility]) Smoking 07/17/2020 12:00:00 AM EDT Never Smoker completed Never S moker eCW1 ([facility]) Smoking 07/17/2020 12:00:00 AM EDT Never Smoker completed Never S moker eCW1 ([facility]) Smoking 07/17/2020 12:00:00 AM EDT Never Smoker completed Never S moker eCW1 ([facility]) Smoking 01/14/2020 12:00:00 AM EST Never Smoker completed Never S moker eCW1 ([facility]) Smoking 01/14/2020 12:00:00 AM EST Never Smoker completed Never S moker eCW1 ([facility]) Smoking 01/14/2020 12:00:00 AM EST Never Smoker completed Never S moker eCW1 ([facility]) Smoking 01/14/2020 12:00:00 AM EST Never Smoker completed Never S moker eCW1 ([facility]) Vital Signs ID Date Data Source UNK Name Value Range Interpretation Code Description Data Source(s) [place] body weight 120 [lb_av] 120 [lb_av] ROSSI Matute ([facility], ) Body weight 92.081 kg 92.081 kg [facility] Body surface area Derived from formula 1.98 m2 1.98 m2 [facility] ([facility]) Systolic blood pressure 132 mm[Hg] 132 mm[Hg] M EDENT ([facility]) Diastolic blood pressure 72 mm[Hg] 72 mm[Hg] [facility] ([facility]) Body height 64.5 [in_i] 64.5 [in_i] [facility] ([facility]) 5'4.50" Body weight 203.00 [lb_av] 203.00 [lb_av] MEDEN T ([facility]) Body mass index (BMI) [Ratio] 34.3 kg/m2 34.3 k g/m2 [facility] ([facility]) Body weight 206.8 [lb_av] 206.8 [lb_av] eCW1 ([facility]) Body height 63 [in_i] 63 [in_i] eCW1 ([facility]) Body mass index (BMI) [Ratio] 36.63 kg/m2 36.63 kg/m2 W1 ([facility]) Heart rate 78 /min 78 /min W1 ([facility]) Respiratory rate 17 /min 17 /min W1 ([facility]) Body temperature 97.8 [degF] 97.8 [degF] eCW1 ( [facility]) Systolic blood pressure 129 mm[Hg] 129 mm[Hg] e CW1 ([facility]) Diastolic blood pressure 73 mm[Hg] 73 mm[Hg] eCW1 ([facility]) Body weight 203 [lb_av] 203 [lb_av] eCW1 ([facility]) Body weight 92.08 kg 92.08 kg eCW1 ([facility]) Body height 63 [in_i] 63 [in_i] eCW1 ([facility]) Body mass index (BMI) [Ratio] 35.96 kg/m2 35.96 kg/m2 W1 ([facility]) Systolic blood pressure 112 mm[Hg] 112 mm[Hg] e CW1 ([facility]) Diastolic blood pressure 78 mm[Hg] 78 mm[Hg] eCW1 ([facility]) Patient Treatment Plan of Care Planned Activity Planned Date Details Description Data Source (s) POLYETHYLENE GLYCOL 3350 59 MG/ML / Pota ssium Chloride 0.01 MEQ/ML / Sodium Bicarbonate 0.02 MEQ/ML / Sodium Chloride 0.025 MEQ/ML / sodium sulfate 0.04 MEQ/ML Oral Solution [Golytely] 11/17/2020 12:00:00 AM EDT eCW1 ([facility]) POLYETHYLENE GLYCOL 3350 59 MG/ML / Pota ssium Chloride 0.01 MEQ/ML / Sodium Bicarbonate 0.02 MEQ/ML / Sodium Chloride 0.025 MEQ/ML / sodium sulfate 0.04 MEQ/ML Oral Solution [Golytely] 11/17/2020 12:00:00 AM EDT eCW1 ([facility]) POLYETHYLENE GLYCOL 3350 59 MG/ML / Pota ssium Chloride 0.01 MEQ/ML / Sodium Bicarbonate 0.02 MEQ/ML / Sodium Chloride 0.025 MEQ/ML / sodium sulfate 0.04 MEQ/ML Oral Solution [Golytely] 11/17/2020 12:00:00 AM EDT eCW1 ([facility]) POLYETHYLENE GLYCOL 3350 59 MG/ML / Pota ssium Chloride 0.01 MEQ/ML / Sodium Bicarbonate 0.02 MEQ/ML / Sodium Chloride 0.025 MEQ/ML / sodium sulfate 0.04 MEQ/ML Oral Solution [Golytely] 11/17/2020 12:00:00 AM EDT eCW1 ([facility]) Misc. Devices - 10/30/2020 12:00:00 AM EDT eCW1 ([facility]) Fluticasone Propionate 50 MCG/ACT 07/17/2020 12:00:00 AM EDT eCW1 ([facility]) Fluticasone Propionate 50 MCG/ACT 07/17/2020 12:00:00 AM EDT eCW1 ([facility]) Fluticasone Propionate 50 MCG/ACT 07/17/2020 12:00:00 AM EDT eCW1 ([facility]) Fluticasone Propionate 50 MCG/ACT 07/17/2020 12:00:00 AM EDT eCW1 ([facility]) Fluticasone Propionate 50 MCG/ACT 07/17/2020 12:00:00 AM EDT eCW1 ([facility]) Fluticasone Propionate 50 MCG/ACT 07/17/2020 12:00:00 AM EDT eCW1 ([facility]) Fluticasone Propionate 50 MCG/ACT 07/17/2020 12:00:00 AM EDT eCW1 ([facility]) Fluticasone Propionate 50 MCG/ACT 07/17/2020 12:00:00 AM EDT eCW1 ([facility])
--- OUTSIDE RECORDS SUMMARY | 2021-02-06 08:09 | CCD ---
Author Author [facility] Organization [facility] Address Unknown Phone Unavailable Care Team Providers Care Rehabilitation Tech Name Role Phone Mary Dumont Unavailable PROBLEMS Type Condition ICD9-CM Code ZKV32-NP Code Onset Dates Condition S tatus W/U Status Risk SNOMED Code Notes Problem Allergic rhinitis, unspecified seasonality, unspecifie d trigger J30.9 Active confirmed 77954201 Problem Macrocytosis D75.89 Active confirmed 2166381 00 Problem Essential hypertension I10 Active confirmed 31325521 Problem Mixed hyperlipidemia E78.2 Active confirmed 428694613 Problem Gastroesophageal reflux disease, esophagitis pre sence not specified K21.9 Active confirmed 530778962 ALLERGIES Allergen (clinical drug ingredient) Drug/Non Drug Allergy do cumented on EMR Reaction Allergy Type Onset Date Status hay fever/dust mites sneezing/nasal congestion Non Drug Al lergy Active Latex Latex rash Drug Allergy Active lisinopril Lisinopril([facility] Code:[address]-96) Cough Drug Allergy Active ENCOUNTERS from 1960 to 2021-01-15 Encounter Location Date Provider Diagnosis [facility] [address] [facility] [phone] [place] [address] Jan, Mary Dumont Breast cancer screen ing by mammogram Z12.31 and Family history of malignant neoplasm of breast Z80.3 IMMUNIZATIONS Vaccine Route Administration Date Status Influenza [...] or milk as needed Orally as needed [place] N Active Diclofenac Sodium 1 % 4 [...] Information RESULTS No Results REASON FOR VISIT mammo order MEDICAL (GENERAL) HISTORY Type Description Date Medical History HTN Medical History Hyperlipidema Medical History Seasonal Allergies Medical History H/o Sinusitis Medical History Chronic night leg cramps Medical History Eczema Medical History Hypertension, benign Medical History Other and unspecified hyperlipidemia Medical History Esophageal reflux Surgical History C-sections 1978 Surgical History Repair of broken left [...] Notes Treatment Notes Treatm ent Clinical Notes Jan, Breast cancer screening by mammogram (ICD-10 - Z 12.31) Jan, Family history of malignant neoplasm of breast ( ICD-10 - Z80.3) PLAN OF TREATMENT Medication Medication Name Sig [...] 2-3 times daily for 30 day(s) Dec, Pending Tests Test Name Order Date WMM DIGITAL MAMMO SCREENING BILAT (Ultra sound if indicated) [facility] 2021-01-14 Next Appt Details Provider Name:Sade De La Cruz, 10:30:00 AM, [id number] [facility], , [place], [address], Insurance Providers Payer Name Payer Address Payer Phone Insured Name Patient Relati onship to Insured Coverage Start Date Coverage End Date [facility] [address] [address] [facility] [id number] Mica WILLARD MEDICARE Part A and B [address] [facility] [phone] MANISHA WILLARD
--- OUTSIDE RECORDS SUMMARY | 2021-02-06 08:09 | CCD ---
Author Author Located Within [facility] em[facility] Organization [facility] ems Address Unknown Phone Unavailable Care Team Providers Care Patrol Deputy Sheriff Name Role Phone Jono Sade Unavailable PROBLEMS Type Condition ICD9-CM Code [id number] Code Onset Dates Condition S tatus W/U Status Risk SNOMED Code Notes Problem Allergic rhinitis, unspecified seasonality, unspecifie d trigger J30.9 Active confirmed 90673518 Problem Macrocytosis D75.89 Active confirmed 2196231 00 Problem Essential hypertension I10 Active confirmed 04881431 Problem Mixed hyperlipidemia E78.2 Active confirmed 230134887 Problem Gastroesophageal reflux disease, esophagitis pre sence not specified K21.9 Active confirmed 625372849 ALLERGIES Allergen (clinical drug ingredient) Drug/Non Drug Allergy do cumented on EMR Reaction Allergy Type Onset Date Status hay fever/dust mites sneezing/nasal congestion Non Drug Al lergy Active lisinopril Cough Drug Allergy Active Latex (for allergy use only) rash Drug Allergy Active ENCOUNTERS from 1960 to 2020-11-17 Encounter Location Date Provider Diagnosis [facility] [id number] [facility] [phone] [place] [address] 13 Nov, 2020 Sade De La Cruz IMMUNIZATIONS Vaccine Route Administration Date Status Influenza [...] Notes Start Da te End Date Status Azelastine HCl 137 MCG/SPRAY 1 puff in each nostril Na augustin Twice a day for 30 day(s) Sep, Active Magnesium 250 MG 1 tab Orally Once a day Active Xyzal 5 MG 1 tablet in the evening Orally Once a day for 90 day(s) Jan, Active Aspirin 81 MG 1 tablet Orally Once a day Active Multivitamins 1 tab(s) Orally daily Active Fish Oil 1200 MG 1 capsule Orally Once a day Active Vitamin B-12 2500 MCG 1 tablet Sublingual daily Active Coenzyme Q10 100 MG 1 capsule with a meal Orally Once a day for sta tin use Active Diclofenac Sodium 1 % 4gms to affected area prn Ex ternally four times daily for 30 day(s) Sep, Active Cyclobenzaprine HCl 10 MG 1 tablet as needed Orally at night for 30 day(s) Aug, Active Melatonin 10 MG Orally Active Tylenol 325 MG 1 tablet as needed Orally every 6 hrs Not-Taking Triamcinolone Acetonide 0.1 % 1 application to affecte d area Externally 2-3 times daily for 30 day(s) Dec, Active Fluticasone Propionate 50 MCG/ACT 1 spray in each nost ril Nasally Once a day for 30 day(s) July, Active Colace 100 MG 1 capsule as needed Orally Once a day Active Diclofenac Sodium 1 % 4 gms Transdermal four times daily for 14 day(s) Sep, Not-Taking Advil 200 MG 1 tablet with food or milk as needed Orally as needed MI N Active Atenolol 50 MG 1 tablet Orally Once a day for blood pressure for 90 day(s) Active Calcium Citrate 500 mg 1 tablet Orally Once a day Active Biotin 1000 MCG 1 tablet Orally Once a day Active Golytely 236 GM mL/soln Orally Daily for 1 days Nov, Active PROCEDURES No Information RESULTS No Results REASON FOR VISIT Colonoscopy prep MEDICAL (GENERAL) HISTORY Type Description Date Medical [...] Medication Name Sig Start Date Stop Date Golytely 236 GM mL/soln Orally Daily for 1 days Nov, Fluticasone Propionate 50 MCG/ACT 1 spray in each nost ril Nasally Once a day for 30 day(s) July, Atenolol 50 MG 1 tablet Orally Once a day for blood pressure fo r 90 day(s) Xyzal 5 MG 1 tablet in the evening Orally Once a day for 90 day(s) Jan, Next Appt Details Provider Name:Sade De La Cruz, 10:30:00 AM, [address] [facility], , [place], [address], Insurance Providers Payer Name Payer Address Payer Phone Insured Name Patient Relati onship to Insured Coverage Start Date Coverage End Date MEDICARE Part A and B [address] [facility] [phone] MANISHA WILLARD [facility] [address] [address] [facility] [id number] [place]
[2021-02-06] MEDS ORDERED: LIDOCAINE 2% 100MG/5ML SDV (FOR ANES.) As Ordered ONE (09:19)
[2021-02-06] MEDS ORDERED: propofoL 200 MG/20 ML VIAL As Ordered ONE ×3 (09:19→10:16)
--- NOTE | 2021-02-06 09:57 | ROOR ---
Patient Name: Ethel Ponce Procedure Date: 02/06/2021 9:25 AM Date of : 1960 Age: 60 Room: [id number] Gender: Female Note Status: Finalized Procedure: Colonoscopy Indications: Screening in patient at increased risk: Colorectal cancer in child before age 60 Providers: Dimitry Blancas MD Referring MD: Sade PADILLA Requesting Provider: Medicines: Monitored Anesthesia Care Complications: No immediate complications. Procedure: Pre-Anesthesia Assessment: - The heart rate, respiratory rate, oxygen saturations, blood pressure, adequacy of pulmonary ventilation, and response to care were monitored throughout the procedure. The Colonoscope was introduced through the anus and advanced to the terminal ileum, with identification of the appendiceal orifice and IC valve. The colonoscopy was performed without difficulty. The patient tolerated the procedure well. The quality of the bowel preparation was good. Findings: The perianal and digital rectal examinations were normal. A 12 mm polyp was found in the splenic flexure. The polyp was flat. The polyp was removed with a cold snare. The polyp was removed with a piecemeal technique using a cold snare. Resection and retrieval were complete. Area within 1 cm just distal to the polypectomy site was tattooed with an injection of Padmini ink. Multiple small and large-mouthed diverticula were found in the sigmoid colon. The exam was otherwise without abnormality on direct and retroflexion views. Impression: - One 12 mm polyp at the splenic flexure, removed with a cold snare and removed piecemeal using a cold snare. Resected and retrieved. Tattooed. - Diverticulosis in the sigmoid colon. - The examination was otherwise normal on direct and retroflexion views. Recommendation: - Repeat colonoscopy in 3 years for surveillance. - Telephone endoscopist for pathology results in 2 weeks. Procedure Code(s): --- Professional --- 20038, Colonoscopy, flexible; with removal of tumor(s), polyp(s), or other lesion(s) by snare technique 49866, Colonoscopy, flexible; with directed submucosal injection(s), any substance Diagnosis Code(s): --- Professional --- K57.30, Diverticulosis of large intestine without perforation or abscess without bleeding K63.5, Polyp of colon Z80.0, Family history of malignant neoplasm of digestive organs CPT copyright 2019 [employer]. All rights reserved. The codes documented in this report are preliminary and upon peoplesoft hr developer review may be revised to meet current compliance requirements. Dimitry Blancas MD Dimitry Blancas MD 02/06/2021 9:57:07 AM Electronically signed by Dimitry Blancas MD Number of Addenda: 0 Note Initiated On: 02/06/2021 9:25 AM Estimated Blood Loss: Estimated blood loss: none.
[2021-02-06] MEDS ORDERED: ONDANSETRON 4MG/2ML VIAL As Ordered ONE (10:13)
[2021-02-06 10:17] VITALS: BP 133/62
== END 2021-02-06 10:20 | disposition home or self-care (01) ==
LOC: M OPP 08:04
PROVIDERS: ATTEND Internal Medicine Gastroenterology
DX: Z12.11 Encounter for screening for malignant neoplasm of colon (principal); Z80.0 Family history of malignant neoplasm of digestive organs; D12.3 Benign neoplasm of transverse colon; K57.30 Diverticulosis of large intestine without perforation or abscess without bleeding; Z79.82 Long term (current) use of aspirin; Z79.899 Other long term (current) drug therapy; Z88.8 Allergy status to other drugs, medicaments and biological substances; Z80.1 Family history of malignant neoplasm of trachea, bronchus and lung; Z80.3 Family history of malignant neoplasm of breast

== ENCOUNTER → 2021-07-16 | Outpatient (CLI) | payer MEDICARE, OTHER ==
[~2021-07-16] MED LIST changes: -NS 1,000 ML IV ONE
[2021-07-16 10:55] LABS: BASO # 0.1 10^3/uL (0.0-0.2); BASO % 1.1 % (0.0-1.0); EOS # 0.1 10^3/uL (0.0-0.5); EOS % 1.4 % (0.0-3.0); HEMATOCRIT 39.2 % (36.0-47.0); HEMOGLOBIN 13.3 g/dl (12.0-15.5); LYMPH # 1.8 10^3/uL (1.5-5.0); MEAN CORPUSCULAR HEMOGLOBIN 34.4 pg (27.0-33.0); MEAN CORPUSCULAR HGB CONC 33.9 g/dl (32.0-36.5); MEAN CORPUSCULAR VOLUME 101.3 fl (80.0-96.0); MONO # 0.4 10^3/uL (0.0-0.8); MONO % 8.9 % (2.0-8.0); NEUTROPHILS # 2.1 10^3/uL (1.5-8.5); NEUTROPHILS % 48.4 % (36.0-66.0); PLATELET COUNT, AUTOMATED 161 10^3/uL (150-450); RED BLOOD COUNT 3.87 10^6/uL (4.00-5.40); WHITE BLOOD COUNT 4.4 10^3/uL (4.0-10.0)
[2021-07-16 11:18] LABS: ALBUMIN 3.9 GM/DL (3.2-5.2); ALT/SGPT 22 U/L (12-78); BILIRUBIN,TOTAL 0.7 MG/DL (0.2-1.0); BLOOD UREA NITROGEN 19 MG/DL (7-18); CALCIUM LEVEL 10.1 MG/DL (8.8-10.2); CARBON DIOXIDE LEVEL 29 MEQ/L (21-32); CHLORIDE LEVEL 104 MEQ/L (98-107); CHOLESTEROL LEVEL 271 MG/DL (<200); CHOLESTEROL RISK RATIO 2.737 (<5); GLOMERULAR FILTRATION RATE > 60.0 (>45); GLUCOSE, FASTING 85 MG/DL (70-100); HDL CHOLESTEROL 99 MG/DL (>40); LDL CHOLESTEROL 155 MG/DL (<100); NON-HDL-C 172 MG/DL; POTASSIUM SERUM 4.3 MEQ/L (3.5-5.1); SODIUM LEVEL 139 MEQ/L (136-145); TOTAL PROTEIN 7.1 GM/DL (6.4-8.2); TRIGLYCERIDES LEVEL 86 MG/DL (<150)
== END ==
LOC: M WUC 10:05
PROVIDERS: ATTEND Nurse Practitioner Family
DX: D75.89 Other specified diseases of blood and blood-forming organs (principal); I10 Essential (primary) hypertension; E78.2 Mixed hyperlipidemia

== ENCOUNTER → 2022-07-14 | Outpatient (REF) | payer MEDICARE, OTHER ==
[2022-07-14 14:15] LABS: BASO # 0.1 10^3/uL (0.0-0.2); BASO % 1.4 % (0.0-1.0); EOS # 0.1 10^3/uL (0.0-0.5); EOS % 2.3 % (0.0-3.0); HEMATOCRIT 40.3 % (36.0-47.0); HEMOGLOBIN 13.3 g/dl (12.0-15.5); LYMPH # 1.7 10^3/uL (1.5-5.0); LYMPH % 37.8 % (24.0-44.0); MEAN CORPUSCULAR HEMOGLOBIN 34.3 pg (27.0-33.0); MEAN CORPUSCULAR VOLUME 103.9 fl (80.0-96.0); MONO # 0.3 10^3/uL (0.0-0.8); MONO % 7.7 % (2.0-8.0); NEUTROPHILS # 2.3 10^3/uL (1.5-8.5); NEUTROPHILS % 50.6 % (36.0-66.0); PLATELET COUNT, AUTOMATED 171 10^3/uL (150-450); RED BLOOD COUNT 3.88 10^6/uL (4.00-5.40); WHITE BLOOD COUNT 4.4 10^3/uL (4.0-10.0)
[2022-07-14 14:19] LABS: ALBUMIN 3.6 G/DL (3.2-5.2); ALKALINE PHOSPHATASE 79 U/L (46-116); ALT/SGPT 25 U/L (7.0-40); AST/SGOT 25 U/L (<34); BILIRUBIN,TOTAL 0.5 MG/DL (0.3-1.2); BLOOD UREA NITROGEN 15 MG/DL (9-23); CARBON DIOXIDE LEVEL 28 MMOL/L (20-31); CHLORIDE LEVEL 106 MMOL/L (98-107); CHOLESTEROL LEVEL 260 MG/DL (<200); CHOLESTEROL RISK RATIO 2.67 (<5); CREATININE FOR GFR 0.71 MG/DL (0.55-1.30); GLOMERULAR FILTRATION RATE > 60.0 (>45); GLUCOSE, FASTING 95 MG/DL (74-106); HDL CHOLESTEROL 97.3 MG/DL (>40); LDL CHOLESTEROL 145.5 MG/DL (<100); NON-HDL-C 162.7 MG/DL; POTASSIUM SERUM 4.6 MMOL/L (3.5-5.1); SODIUM LEVEL 142 MMOL/L (136-145); TOTAL PROTEIN 6.5 G/DL (5.7-8.2); TRIGLYCERIDES LEVEL 86 MG/DL (<150)
== END ==
LOC: M LABWUC 12:39
PROVIDERS: ATTEND Student in an Organized Health Care Education/Training Program
DX: I10 Essential (primary) hypertension (principal); D75.89 Other specified diseases of blood and blood-forming organs

== ENCOUNTER → 2023-02-02 | Outpatient (REF) | payer MEDICARE, OTHER ==
[2023-02-02 17:55] LABS: FERRITIN 223.4 NG/ML (7.3-270.7)
[2023-02-02 17:57] LABS: BASO # 0.1 10^3/uL (0.0-0.2); BASO % 0.7 % (0.0-1.0); EOS # 0.1 10^3/uL (0.0-0.5); EOS % 1.4 % (0.0-3.0); HEMATOCRIT 29.3 % (36.0-47.0); HEMOGLOBIN 9.5 g/dl (12.0-15.5); LYMPH # 1.6 10^3/uL (1.5-5.0); LYMPH % 22.6 % (24.0-44.0); MEAN CORPUSCULAR HEMOGLOBIN 34.4 pg (27.0-33.0); MEAN CORPUSCULAR HGB CONC 32.4 g/dl (32.0-36.5); MEAN CORPUSCULAR VOLUME 106.2 fl (80.0-96.0); MONO # 0.6 10^3/uL (0.0-0.8); MONO % 8.2 % (2.0-8.0); NEUTROPHILS # 4.8 10^3/uL (1.5-8.5); NEUTROPHILS % 66.5 % (36.0-66.0); PLATELET COUNT, AUTOMATED 256 10^3/uL (150-450); RED BLOOD COUNT 2.76 10^6/uL (4.00-5.40); WHITE BLOOD COUNT 7.2 10^3/uL (4.0-10.0)
== END ==
LOC: M SFHCCLAY 11:53
PROVIDERS: ATTEND Physician Assistant
DX: Z79.899 Other long term (current) drug therapy (principal); W10.1XXA Fall (on)(from) sidewalk curb, initial encounter; D50.8 Other iron deficiency anemias

== ENCOUNTER → 2023-02-11 | Outpatient (CLI) | payer MEDICARE, OTHER ==
[2023-02-11 15:12] LABS: BASO # 0.1 10^3/uL (0.0-0.2); BASO % 1.2 % (0.0-1.0); EOS # 0.2 10^3/uL (0.0-0.5); EOS % 3.4 % (0.0-3.0); HEMATOCRIT 32.1 % (36.0-47.0); HEMOGLOBIN 10.3 g/dl (12.0-15.5); LYMPH # 1.3 10^3/uL (1.5-5.0); LYMPH % 26.4 % (24.0-44.0); MEAN CORPUSCULAR HEMOGLOBIN 34.8 pg (27.0-33.0); MEAN CORPUSCULAR HGB CONC 32.1 g/dl (32.0-36.5); MEAN CORPUSCULAR VOLUME 108.4 fl (80.0-96.0); MONO # 0.3 10^3/uL (0.0-0.8); MONO % 6.3 % (2.0-8.0); NEUTROPHILS # 3.1 10^3/uL (1.5-8.5); NEUTROPHILS % 62.3 % (36.0-66.0); PLATELET COUNT, AUTOMATED 242 10^3/uL (150-450); RED BLOOD COUNT 2.96 10^6/uL (4.00-5.40)
[2023-02-11 15:36] LABS: IRON (FE) 138 UG/DL (50-170); TOTAL IRON BINDING CAPACITY 307 UG/DL (250-425)
[2023-02-11 15:39] LABS: ALBUMIN 3.5 G/DL (3.2-5.2); ALKALINE PHOSPHATASE 80 U/L (46-116); ALT/SGPT 18 U/L (7.0-40); AST/SGOT 21 U/L (<34); BILIRUBIN,TOTAL 0.7 MG/DL (0.3-1.2); BLOOD UREA NITROGEN 15 MG/DL (9-23); CALCIUM LEVEL 9.1 MG/DL (8.3-10.6); CARBON DIOXIDE LEVEL 29 MMOL/L (20-31); CHLORIDE LEVEL 104 MMOL/L (98-107); CHOLESTEROL LEVEL 250 MG/DL (<200); CHOLESTEROL RISK RATIO 3.08 (<5); FERRITIN 218.4 NG/ML (7.3-270.7); FREE T4 0.94 NG/DL (0.89-1.76); GLOMERULAR FILTRATION RATE > 60.0 (>45); GLUCOSE, FASTING 80 MG/DL (74-106); HDL CHOLESTEROL 81.1 MG/DL (>40); LDL CHOLESTEROL 149.5 MG/DL (<100); NON-HDL-C 168.9 MG/DL; POTASSIUM SERUM 4.6 MMOL/L (3.5-5.1); SODIUM LEVEL 141 MMOL/L (136-145); THYROID STIMULATING HORMONE 1.294 uIU/ML (0.55-4.78); TOTAL 25(OH) VITAMIN D 40.2 NG/ML (20.0-100.0); TOTAL PROTEIN 6.4 G/DL (5.7-8.2); TRIGLYCERIDES LEVEL 97 MG/DL (<150); VITAMIN B12 LEVEL 614 PG/ML (211-911)
[2023-02-11 15:42] LABS: FOLATE > 24.00 NG/ML (>5.4)
== END ==
LOC: M WUC 10:30
PROVIDERS: ATTEND Physician Assistant
DX: M79.672 Pain in left foot (principal); I10 Essential (primary) hypertension; E78.2 Mixed hyperlipidemia; D75.89 Other specified diseases of blood and blood-forming organs; J30.2 Other seasonal allergic rhinitis; K21.9 Gastro-esophageal reflux disease without esophagitis; D50.8 Other iron deficiency anemias; Z98.1 Arthrodesis status; M19.072 Primary osteoarthritis, left ankle and foot; Z79.899 Other long term (current) drug therapy

== ENCOUNTER → 2023-02-18 | Outpatient (CLI) | payer MEDICARE, OTHER | LOC: M WHC 11:26 | PROVIDERS: ATTEND Physician Assistant | DX: Z12.31 Encounter for screening mammogram for malignant neoplasm of breast (principal) ==

== ENCOUNTER → 2023-08-19 | Outpatient (REF) | payer MEDICARE, OTHER ==
[2023-08-19 18:50] LABS: BASO % 1.1 % (0.0-1.0); EOS # 0.1 10^3/uL (0.0-0.5); EOS % 2.2 % (0.0-3.0); HEMATOCRIT 41.4 % (36.0-47.0); HEMOGLOBIN 13.6 g/dl (12.0-15.5); LYMPH # 1.6 10^3/uL (1.5-5.0); LYMPH % 42.5 % (24.0-44.0); MEAN CORPUSCULAR HEMOGLOBIN 34.3 pg (27.0-33.0); MEAN CORPUSCULAR HGB CONC 32.9 g/dl (32.0-36.5); MEAN CORPUSCULAR VOLUME 104.5 fl (80.0-96.0); MONO # 0.4 10^3/uL (0.0-0.8); MONO % 9.5 % (2.0-8.0); NEUTROPHILS # 1.6 10^3/uL (1.5-8.5); NEUTROPHILS % 44.4 % (36.0-66.0); PLATELET COUNT, AUTOMATED 166 10^3/uL (150-450); RED BLOOD COUNT 3.96 10^6/uL (4.00-5.40); WHITE BLOOD COUNT 3.7 10^3/uL (4.0-10.0)
[2023-08-19 18:54] LABS: TOTAL IRON BINDING CAPACITY 275 UG/DL (250-425)
[2023-08-19 18:55] LABS: ALBUMIN 3.9 G/DL (3.2-5.2); ALKALINE PHOSPHATASE 81 U/L (46-116); ALT/SGPT 29 U/L (7.0-40); AST/SGOT 26 U/L (<34); BILIRUBIN,TOTAL 0.7 MG/DL (0.3-1.2); BLOOD UREA NITROGEN 16 MG/DL (9-23); CALCIUM LEVEL 9.4 MG/DL (8.3-10.6); CARBON DIOXIDE LEVEL 28 MMOL/L (20-31); CHLORIDE LEVEL 103 MMOL/L (98-107); CHOLESTEROL LEVEL 291 MG/DL (<200); CHOLESTEROL RISK RATIO 2.69 (<5); CREATININE FOR GFR 0.68 MG/DL (0.55-1.30); GLOMERULAR FILTRATION RATE > 60.0 (>45); GLUCOSE, FASTING 88 MG/DL (74-106); HDL CHOLESTEROL 108.1 MG/DL (>40); IRON (FE) 154 UG/DL (50-170); LDL CHOLESTEROL 161.3 MG/DL (<100); NON-HDL-C 182.9 MG/DL; POTASSIUM SERUM 4.2 MMOL/L (3.5-5.1); SODIUM LEVEL 138 MMOL/L (136-145); TOTAL PROTEIN 6.9 G/DL (5.7-8.2); TRIGLYCERIDES LEVEL 108 MG/DL (<150)
[2023-08-19 18:59] LABS: FOLATE 22.7 NG/ML (>5.4); THYROID STIMULATING HORMONE 1.329 uIU/ML (0.55-4.78)
[2023-08-19 19:00] LABS: FERRITIN 243.8 NG/ML (7.3-270.7); VITAMIN B12 LEVEL 628 PG/ML (211-911)
== END ==
LOC: M SFHCLERA 09:59
PROVIDERS: ATTEND Physician Assistant
DX: E78.2 Mixed hyperlipidemia (principal); D75.89 Other specified diseases of blood and blood-forming organs; I10 Essential (primary) hypertension

== ENCOUNTER → 2024-03-13 | Outpatient (REF) | payer MEDICARE, OTHER ==
[2024-03-13 18:58] LABS: HEMATOCRIT 39.7 % (36.0-47.0); HEMOGLOBIN 13.2 g/dl (12.0-15.5); MEAN CORPUSCULAR HEMOGLOBIN 34.5 pg (27.0-33.0); MEAN CORPUSCULAR HGB CONC 33.2 g/dl (32.0-36.5); MEAN CORPUSCULAR VOLUME 103.7 fl (80.0-96.0); PLATELET COUNT, AUTOMATED 151 10^3/uL (150-450); RED BLOOD COUNT 3.83 10^6/uL (4.00-5.40); WHITE BLOOD COUNT 4.6 10^3/uL (4.0-10.0)
[2024-03-13 19:04] LABS: HEMOGLOBIN A1c 5.3 % (4.0-6.0); NEUTROPHILS % 60.2 % (36.0-66.0)
[2024-03-13 19:15] LABS: ALBUMIN 3.9 G/DL (3.2-5.2); ALKALINE PHOSPHATASE 80 U/L (35-104); ALT/SGPT 26 U/L (7.0-40); AST/SGOT 23 U/L (<34); BILIRUBIN,TOTAL 0.5 MG/DL (0.3-1.2); BLOOD UREA NITROGEN 14 MG/DL (9-23); CALCIUM LEVEL 9.9 MG/DL (8.3-10.6); CARBON DIOXIDE LEVEL 30 MMOL/L (20-31); CHLORIDE LEVEL 107 MMOL/L (98-107); CHOLESTEROL LEVEL 238 MG/DL (<200); CHOLESTEROL RISK RATIO 2.32 (<5); CREATININE FOR GFR 0.68 MG/DL (0.55-1.30); GLOMERULAR FILTRATION RATE > 60.0 (>45); GLUCOSE, FASTING 79 MG/DL (74-106); HDL CHOLESTEROL 102.5 MG/DL (>40); LDL CHOLESTEROL 110.1 MG/DL (<100); NON-HDL-C 135.5 MG/DL; POTASSIUM SERUM 4.4 MMOL/L (3.5-5.1); SODIUM LEVEL 142 MMOL/L (136-145); TOTAL 25(OH) VITAMIN D 42.8 NG/ML (20.0-100.0); TOTAL PROTEIN 7.1 G/DL (5.7-8.2); TRIGLYCERIDES LEVEL 127 MG/DL (<150)
[2024-03-13 19:16] LABS: FOLATE > 24.00 NG/ML (>5.4)
[2024-03-13 19:17] LABS: VITAMIN B12 LEVEL 776 PG/ML (211-911)
[2024-03-14 14:30] LABS: BASO % 0.9 % (0.0-1.0); EOS # 0.1 10^3/uL (0.0-0.5); EOS % 1.3 % (0.0-3.0); LYMPH # 1.3 10^3/uL (1.5-5.0); LYMPH % 27.7 % (24.0-44.0); MONO # 0.4 10^3/uL (0.0-0.8); MONO % 7.7 % (2.0-8.0); NEUTROPHILS # 2.9 10^3/uL (1.5-8.5)
== END ==
LOC: M SFHCLERA 10:26
DX: I10 Essential (primary) hypertension (principal); E78.2 Mixed hyperlipidemia; K21.9 Gastro-esophageal reflux disease without esophagitis; J30.9 Allergic rhinitis, unspecified; Z80.3 Family history of malignant neoplasm of breast; Z79.899 Other long term (current) drug therapy

== ENCOUNTER → 2024-04-09 | Outpatient (CLI) | payer MEDICARE, OTHER | LOC: M WHC 11:21 | DX: R10.31 Right lower quadrant pain (principal); Z78.0 Asymptomatic menopausal state ==

== ENCOUNTER → 2024-05-17 | Outpatient (CLI) | payer MEDICARE | LOC: M RAD 14:00 | DX: K57.30 Diverticulosis of large intestine without perforation or abscess without bleeding (principal); R10.31 Right lower quadrant pain ==

== ENCOUNTER → 2024-05-23 | Outpatient (CLI) | payer MEDICARE, OTHER | LOC: M RAD 10:29 | DX: N28.89 Other specified disorders of kidney and ureter (principal) ==

== ENCOUNTER → 2024-05-25 | Outpatient (CLI) | payer MEDICARE, OTHER | LOC: M RAD 06:51 | DX: R22.32 Localized swelling, mass and lump, left upper limb (principal) ==

== ENCOUNTER → 2024-06-06 | Outpatient (CLI) | payer MEDICARE, OTHER | LOC: M WHC 13:20 | PROVIDERS: ATTEND Obstetrics & Gynecology | DX: Z12.31 Encounter for screening mammogram for malignant neoplasm of breast (principal); Z80.3 Family history of malignant neoplasm of breast; R92.323 Mammographic fibroglandular density, bilateral breasts ==

== ENCOUNTER → 2024-06-06 | Outpatient (REF) | payer MEDICARE, OTHER ==
[2024-06-08 15:06] LABS: HPV APTIMA Not Detected (Not Detected)
== END ==
LOC: M SFHCWAGY 18:02
PROVIDERS: ATTEND Obstetrics & Gynecology
DX: Z12.4 Encounter for screening for malignant neoplasm of cervix (principal)
CPT/HCPCS: 87624; G0123

== ENCOUNTER → 2024-06-06 | Outpatient (CLI) | payer MEDICARE, OTHER | LOC: M WHC 14:13 | PROVIDERS: ATTEND Obstetrics & Gynecology | DX: Z53.9 Procedure and treatment not carried out, unspecified reason (principal) ==

== ENCOUNTER → 2024-06-14 | Outpatient (CLI) | payer MEDICARE, OTHER | LOC: M WHC 11:35 | PROVIDERS: ATTEND Obstetrics & Gynecology | DX: R10.2 Pelvic and perineal pain (principal); N88.8 Other specified noninflammatory disorders of cervix uteri; D25.1 Intramural leiomyoma of uterus ==

== ENCOUNTER 2024-07-26 06:39 | Day surgery (SDC) | payer MEDICARE, OTHER ==
[~2024-07-26] VITALS: Ht 165.1 cm; Wt 89.0 kg
[~2024-07-26 06:39] MED LIST changes: -BIOT1000 PO; +BIOT10002 PO; +ROSU5TAB49 PO; +THERTAB52 PO
[2024-07-26] MEDS ORDERED: LIDOCAINE 2% 100MG/5ML SDV (FOR ANES.) As Ordered ONE (07:20)
[2024-07-26] MEDS ORDERED: propofoL 200 MG/20 ML VIAL As Ordered ONE (07:20)
[2024-07-26] MEDS ORDERED: GLYCOPYRROLATE INJ 0.2 MG/ML 2 ML VIAL As Ordered ONE (07:54)
[2024-07-26 07:58] VITALS: TEMP 94.4
[2024-07-26 08:17] VITALS: BP 128/59; O2SAT 96
== END 2024-07-26 08:20 | disposition home or self-care (01) ==
LOC: M OPP 06:39
PROVIDERS: ATTEND Internal Medicine Gastroenterology
DX: Z12.11 Encounter for screening for malignant neoplasm of colon (principal); D12.2 Benign neoplasm of ascending colon; Z86.0100 Personal history of colon polyps, unspecified; Z80.0 Family history of malignant neoplasm of digestive organs; K57.30 Diverticulosis of large intestine without perforation or abscess without bleeding; K21.9 Gastro-esophageal reflux disease without esophagitis; E78.00 Pure hypercholesterolemia, unspecified; Z98.84 Bariatric surgery status; Z90.710 Acquired absence of both cervix and uterus; Z79.899 Other long term (current) drug therapy; Z79.82 Long term (current) use of aspirin; Z88.8 Allergy status to other drugs, medicaments and biological substances
CPT/HCPCS: 45385; 88305; J1596

== ENCOUNTER → 2025-02-15 | Outpatient (CLI) | payer MEDICARE, OTHER ==
[2025-02-15 12:42] LABS: ALT/SGPT 24 U/L (7.0-40); AST/SGOT 31 U/L (<34); CALCIUM LEVEL 8.9 MG/DL (8.3-10.6); CARBON DIOXIDE LEVEL 29 MMOL/L (20-31); CHLORIDE LEVEL 101 MMOL/L (98-107); CHOLESTEROL LEVEL 194 MG/DL (<200); CHOLESTEROL RISK RATIO 1.78 (<5); CREATININE FOR GFR 0.69 MG/DL (0.55-1.30); GLOMERULAR FILTRATION RATE > 90.0 (>45); LDL CHOLESTEROL 68.4 MG/DL (<100); NON-HDL-C 85.4 MG/DL; POTASSIUM SERUM 4.3 MMOL/L (3.5-5.1); SODIUM LEVEL 140 MMOL/L (136-145); TRIGLYCERIDES LEVEL 85 MG/DL (<150)
== END ==
LOC: M WUC 10:31
DX: Z00.00 Encounter for general adult medical examination without abnormal findings (principal); Z79.899 Other long term (current) drug therapy